=== PATIENT | male | born 1970 | race Caucasian/White ===

== ENCOUNTER 2022-11-17 14:19 | Emergency (ER) | payer OTHER, SELFPAY ==
[2022-11-17 14:47] VITALS: BP 162/95; PULSE 95; RESP 16; O2SAT 98; BMI 31.4
--- NOTE | 2022-11-17 14:54 | ED_ITS ---
HPI - Wound/Laceration General: Chief Complaint: Wound/Laceration Stated Complaint: left leg laceration/injury Time Seen by Provider: 11/17/22 14:54 History of Present Illness: 52-year-old male patient comes in today for injury to the left anterior upper leg. Patient was using a chain saw when it kicked back causing injury to the leg. Patient has a 4 cm linear laceration to the left lower leg. Patient's tetanus is up-to-date. Patient appears nontoxic. Patient is on antidepressant but no other medications. Patient denies any chronic medical problems. Review of Systems General: Reports: 10 or more systems reviewed and unremarkable except in HPI and below Skin/Breast: Reports: new lesions Physical Exam Const: COMMON NORMALS: alert HENMT: COMMON NORMALS: normocephalic HEAD & SCALP: normocephalic Neck/C-Spine: COMMON NORMALS: full ROM Resp: COMMON NORMALS: normal respiratory effort Cardio: COMMON NORMALS: regular rate RATE: regular rate Back/Pelvis: COMMON NORMALS: thoracic and lumbar spine normal to inspection Extremity: LEFT LOWER EXTREMITY: Yes upper leg (4 cm laceration left upper leg.) Left upper leg: Yes inspection, Yes palpation and Yes neurovascular exam Neuro: SENSORIUM/ORIENTATION: Yes alert Skin: TRAUMA: laceration (Left upper leg) linear Procedures Laceration Laceration 1: Site: lower extremity Side (If applicable): left Size (cm): 4 Description: linear Local Anesthetic: lidocaine 2% and with epi Amount of anesthesia used (mL): 5 Pre-repair: wound explored and irrigated extensively Skin layer closed with: nylon Size (cm): 3-0 Number of sutures: 5 Technique: simple, interrupted (2) and horizontal mattress (3) Course Vital Signs: Vital signs: Vital Signs Pulse Rate 95 11/17/22 14:47 Respiratory Rate 16 11/17/22 14:47 Blood Pressure 162/95 11/17/22 14:47 Pulse Oximetry 98 11/17/22 14:47 Oxygen Delivery Me thod Room Air 11/17/22 14:47 MDM - Wound/Laceration Medical Decision Making Patient comes in today with complaints of injury to the left upper leg. On exam there is a 4 cm laceration to left upper leg, normal range of motion of the extremity, distal pulses and sensation are intact, no foreign body is noted in the wound. Differential diagnosis includes fracture, sprain, contusion, foreign body, laceration. Wound was thoroughly cleaned and irrigated. No fracture or foreign bodies were noted. Wound was closed with 3-0 nylon suture. Patient tolerated well. Reviewed post care and instructions with patient. Patient reported understanding. No radiology studies performed this visit Discharge Plan Discharge Patient Disposition: Home Clinical Impression: Laceration of left thigh Qualifiers: Encounter type: initial encounter Qualified Code(s): S71.112A - Laceration without foreign body, left thigh, initial encounter Condition: Stable Prescriptions: New doxycycline hyclate 100 mg capsule 100 mg PO BID 7 Days Qty: 14 0RF Discharge Orders: Discharge ED (Routine); Ordered 11/17/22 Ordered By: Dilshad Moore Discharge Diet: Usual diet Discharge Activity: Increase activity as tolerated Patient Instructions: Care For Your Stitches (ED) Activity Restrictions/Additional Instructions: Keep wound clean and dry. It is very important keep the wound clean and dry for the first 48 hours. After that you can clean the wound with mild soap and water and cover with antibiotic ointment and a dressing. Monitor site for signs of redness. If the redness and heat start showing up in the wound in approximately 2 to 3 days start antibiotic by mouth. Sutures need to come out in 10 to 14 days. Follow-up with primary care in 1 week for recheck. Return to ED for new concerns or worsening symptoms. Coding Level of Care Code ED Assistant Speech Language Pathologist for Anabelle Meehan
== END 2022-11-17 15:30 | disposition home or self-care (01) ==
PROVIDERS: Emergency Provider Nurse Practitioner Family
DX: S71.112A Laceration without foreign body, left thigh, initial encounter (principal); W29.3XXA Contact with powered garden and outdoor hand tools and machinery, initial encounter
CPT/HCPCS: 12002; 99282